=== PATIENT | female | born 1990 | race Asian ===

== ENCOUNTER 2024-11-07 10:41 | Emergency (ER) | payer BC, SELFPAY ==
[2024-11-07 10:49] VITALS: BP 116/76
[2024-11-07 11:07] VITALS: BMI 30.2
[2024-11-07 11:32] LABS: Hematocrit 37.7 % (37.0-47.0); Hemoglobin 12.6 g/dL (12.0-16.0); Mean Corp Hgb Conc. 33.4 g/dL (33.0-37.0); Mean Corpuscular Volume 80.4 fL (81.0-99.0); Nucleated Red Blood Cells % 0 %; Platelet Count 423 10^3/uL (130-400); Red Cell Dist. Width 14.4 % (11.5-14.5)
[2024-11-07 11:51] VITALS: BP 107/83
--- NOTE | 2024-11-07 11:58 | ED.GENMED ---
History of Present Illness
General
Chief Complaint: Problems
Source: patient
Exam Limitations: none
Time Seen by Provider: 11/07/24 11:17
Nursing documentation reviewed up to this point in time: agreed with
History of Present Illness
History of Present Illness:
Patient is a at approximately 6 weeks gestation who presents the emergency department with vaginal spotting. Patient states that her last menstrual period was 09/28/24. She had her first positive at-home test this past 11/04/24
along with 2 additional positive test over the following days. Patient states that yesterday evening she began noticing some ramping in her left pelvic region. This morning, she had brown spotting when she wiped only. She denies any bright red
bleeding or passage of clots.
Patient has yet to have an appointment with the [facility] however she is attempting to schedule with [facility]. She did contact their triage line this morning and was referred to the emergency department to rule out an ectopic
.
Patient denies any shortness of breath, lightheadedness/dizziness or syncopal events. She denies any fever or vomiting.
Review of Systems
Review of Systems
Allergies reviewed?: Yes
All Other Systems: ROS reviewed and negative except as documented in HPI and ROS
Phy Exam
Physical Exam
Physical Exam:
Vitals: Patient's vital signs are stable. Afebrile
General: Patient is well appearing, no acute distress
Skin: Warm and dry, no rashes or lesions
Head: Normocephalic, atraumatic
Eyes: Sclera nonicteric.
Throat: Protecting airway
Neck: Normal ROM, no cervical spine tenderness, no meningismus
Cardiac: Regular rate
Pulm: No respiratory distress
Abdomen: Abdomen soft with very mild tenderness in left pelvic region. No rebound tenderness or guarding.
Extremities: No evidence of cyanosis or edema
Neuro: AAOx3. Grossly intact.
Psychiatric: Normal affect.
Course
Orders/Labs/Results
Orders:
Orders
11/07/24 11:20
Beta HCG Quantitative Urgent
Is this a screen?: No
Complete Blood Count/With Diff Urgent
11/07/24 11:22
Type+Screen Urgent
11/07/24 11:56
US W Transvaginal Urgent
Reason For Exam: vaginal bleeding early
Abnormal Lab Results
11/07/24
11:20
WBC 11.7 H 10^3/uL
(4.8-10.8)
MCV 80.4 L fL
(81.0-99.0)
MCH 26.9 L pg
(27.0-31.0)
Plt Count 423 H 10^3/uL
(130-400)
Abs Immat Gran (auto) 0.1 H 10^3/uL
(0-0.05)
Absolute Neuts (auto) 8.1 H 10^3/uL
(1.4-6.5)
Immature Gran % 0.9 H %
(0-0.5)
11/07/24 11:20
Vital Signs
Initial and Last Documented VS:
Initial Vital Signs
Temp Pulse Resp BP Pulse Ox
98.4 F 90 16 116/76 98
11/07/24 10:49 11/07/24 10:49 11/07/24 10:49 11/07/24 10:49 11/07/24 10:49
Last Documented Vital Signs
Temp Pulse Resp BP Pulse Ox
98.4 F 74 16 108/85 98
11/07/24 10:49 11/07/24 12:57 11/07/24 12:57 11/07/24 12:57 11/07/24 12:01
Information
Weeks gestation: Weeks: (6 weeks, 2 days)
Location: Location: (Intrauterine)
MDM/Problems Addressed
Differential Diagnosis Includes:
Not limited to: Threatened , missed , subchronic hemorrhage, ectopic , etc.
MDM/Problems Addressed:
34-year-old female at approximately 6 weeks gestation presenting with mild left pelvic cramping as well as light vaginal spotting which started last night. Positive at-home test earlier this week however no ultrasound confirmation
thus far. No associated lightheadedness, shortness of breath, episodes of syncope. Sent to ED to rule out ectopic by [facility]. Patient hemodynamically stable on arrival. She is afebrile. On exam�patient well-appearing, no apparent
distress. Cardio/pulmonary assessment unremarkable. Abdomen soft with very very minimal tenderness in left pelvic region. No rebound tenderness or guarding.
Differential broad as above. ED plan: CBC, type and screen, hCG. Will obtain OB ultrasound and reassess.
Update: Labs reveal mild leukocytosis of 11.7. [place] [address]. Patient blood type O+. Ultrasound reveals single live IUP dating 6 weeks, 2 days with heart rate of 170 bpm. While this ultrasound finding is very reassuring�did
discuss with patient concern for threatened given vaginal bleeding in early . Advised pelvic rest and close OB follow-up for continued monitoring. Blood type O+�RhoGAM not indicated. Patient stable for discharge home.
Chronic conditions affecting care:
N/A
Acute Exacerbation and/or Progression of Chronic Illness:
N/A
*Radiology
Radiology exam reviewed: radiology read reviewed
*Pulse Oximetry
SaO2: 98
Oxygen Mode of Delivery: Room air
Patient hypoxic: no
*EKG
Interpreted by ED Provider?: NA
*Tower Observer Interpretation
Rate: Tower Observer- N/A
*Critical Care Note
Total Time (30-74mins, 75-104mins- exclusive of procedures): Not Applicable
ED Attending Note
-
Portions of this chart may have been created with voice recognition software.� Occasional wrong word or��sound alike� substitutions may have occurred due to the inherent limitations of voice recognition software.
Discharge Plan
Departure
Patient Disposition: Home (Routine Discharge)
Date of Disposition: 11/07/24
Time of Disposition: 13:47
Patient with high blood pressure during this ER visit?: No
Condition: Good
Discharge Problem:
Threatened miscarriage in early , Pelvic pain during
Instructions: Threatened Miscarriage (DC)
Prescriptions:
New
doxylamine-pyridoxine (vit B6) [Diclegis] 10-10 mg tablet,delayed release (DR/EC)
See Rx Instructions .ROUTE .COMPLEX Qty: 30 0RF
Rx Instructions:
2 tabs nightly, then add 1 tab in morning and 1 tab in afternoon if needed
Referrals:
Levar Javier MD [Active, Gynecology] - Next open appointment
Activity Restrictions/Additional Instructions:
RETURN TO THE EMERGENCY DEPARTMENT WITH ANY PERSISTENT/SEVERE PELVIC PAIN, WORSENING BLEEDING/PASSING LARGE CLOTS, LIGHTHEADEDNESS OR DIZZINESS, SHORTNESS OF BREATH, WORSENING CURRENT SYMPTOMS, OR ANY OTHER CONCERNS
- As discussed�your test was positive in the emergency department. Your ultrasound did show an intrauterine dating approximately 6 weeks, 2 days with heart rate of 170 bpm.
- I would adhere to pelvic rest until cleared by [facility].
- Please stay well-hydrated. A prescription for an antinausea has been sent to your pharmacy if symptoms persist/worsen despite diet modifications
- Follow-up with [facility] for further evaluation/management and to ensure that your symptoms improve
Monitor your symptoms closely and return to the emergency department with any acute worsening/new symptoms or any other concerns
Interventions
Interventions:
*Risk Screen - Suicide Last Done: 11/07/24 10:49
*General Assessment Last Done: 11/07/24 11:27
*Neglect/Abuse Screening Last Done: 11/07/24 10:49
*ED- Fall Risk Assessment Last Done: 11/07/24 11:09
*ED COVID-19 Vaccine History Last Done: 11/07/24 11:09
*Nursing Disposition Last Done: 11/07/24 14:19
ED-Female Genitourinary Assessment Last Done: 11/07/24 11:09
Discharge Date and Time
Discharge Date/Time: 11/07/24 14:20
Print Language: UKRAINIAN
[2024-11-07 12:28] LABS: Beta HCG Quantitative 16853.00 mIU/ml
[2024-11-07 12:57] VITALS: BP 108/85
== END 2024-11-07 14:20 | disposition home or self-care (01) ==
LOC: EMR 10:41
PROVIDERS: EMERGENCY PHYSICIAN Emergency Medicine; FAMILY PHYSICIAN Physician Assistant
DX: O20.0 Threatened abortion (principal); Z3A.01 Less than 8 weeks gestation of pregnancy
CPT/HCPCS: 99284; 76801; 76817; 84702; 85025; 86850; 86900; 86901

== ENCOUNTER → 2024-11-25 13:51 | Outpatient (REF) | payer BC, SELFPAY | LOC: RAD 13:51 | PROVIDERS: ATTENDING PHYSICIAN Obstetrics & Gynecology; FAMILY PHYSICIAN Physician Assistant | DX: O26.851 Spotting complicating pregnancy, first trimester (principal) | CPT/HCPCS: 76801 ==

== ENCOUNTER → 2024-12-11 17:48 | Outpatient (REF) | payer BC, SELFPAY | LOC: RAD 17:48 | PROVIDERS: ATTENDING PHYSICIAN Obstetrics & Gynecology; FAMILY PHYSICIAN Physician Assistant | DX: O26.859 Spotting complicating pregnancy, unspecified trimester (principal) | CPT/HCPCS: 76801 ==

== ENCOUNTER 2025-01-07 18:44 | Emergency (ER) | payer BC, SELFPAY ==
[2025-01-07 18:51] VITALS: BP 126/89
--- NOTE | 2025-01-07 19:33 | ED.GENMED ---
History of Present Illness
General
Chief Complaint: Abdominal Pain
Source: patient
Exam Limitations: none
Time Seen by Provider: 01/07/25 19:07
Nursing documentation reviewed up to this point in time: agreed with
History of Present Illness
History of Present Illness:
34-year-old female postop day 12 from elective D&E at [facility] due to abnormality, postoperatively she has had persistent pelvic pain into her back also into her legs, no fever no malodorous discharge, no heavy vaginal
bleeding no nausea or vomiting been using some Tylenol with relief has an appointment to see her treating gynecologic surgeon on Monday, she spoke with both her local OB and her gynecologic surgeon who recommend come to the ER for evaluation
Past History
Past History
ED Past Surgical History: Gynecological
Social History
Tobacco: Non-smoker
Alcohol: None
Drug: None
Personal:
Living: with family
Employment: Employed
Phy Exam
Physical Exam
Physical Exam:
Physical Exam
General: no apparent distress, not acutely ill
Neck: No jaundice
Heart: s1/s2 regular rate and rhythm, no murmur. equal radial pulses.
Lungs: no acute respiratory distress. clear bilaterally
Abdomen: Soft mild lower abdominal pelvic pain left and right
Neuro: alert and oriented. no focal neurological deficits
Skin: no rash
Psychiatric: well kept. interactive and cooperative
Extremities: no edema
Course
Orders/Labs/Results
Orders:
Orders
01/07/25 19:22
Ketorolac [Toradol] 30 mg IV NOW STA
US Pelvis Only (non-obstetric) Urgent
Comment:
Reason For Exam: retained products, d/e 14 weeks
01/07/25 19:24
0.9% Sodium Chloride 1000 ml [Nss] 1,000 ml IV BOLUS
01/07/25 19:47
Blood Group&Type Urgent
Beta HCG Quantitative Urgent
Is this a screen?: No
Complete Blood Count/With Diff Urgent
Comprehensive Metabolic Panel Urgent
01/07/25 19:52
Urinalysis Reflex To Culture Urgent
Specimen Description:
Date Specimen was Collected: 01/07/25
Time Specimen was Collected: 19:49
Urine Microscopic Reflex Cult Urgent
Urine Culture Urgent
CHARMAINE Source: U
Specimen Description:
Date Specimen was Collected: 01/07/25
Time Specimen was Collected: 19:49
01/07/25 22:33
CT Abd/pelvis W Iv Cont Urgent
Comment:
Reason For Exam: lower pelivc pain
HYDROmorphone [Dilaudid] 0.5 mg IV NOW STA
Abnormal Lab Results
01/07/25 01/07/25
19:47 19:52
MCH 26.5 L pg
(27.0-31.0)
MCHC 31.7 L g/dL
(33.0-37.0)
Plt Count 486 H 10^3/uL
(130-400)
Glucose 100 H mg/dl
(70-99)
Total Protein 8.5 H g/dl
(6.3-8.2)
Ur Occult Blood Reflex 2+ A
(Negative)
Urine Bacteria (Reflex) Many A
(Negative)
Urine Albumin (Reflex) 1+ A
(Neg - Trace)
01/07/25 19:47
01/07/25 19:47
Vital Signs
Initial and Last Documented VS:
Initial Vital Signs
Temp Pulse Resp BP Pulse Ox
97.8 F 94 16 126/89 98
01/07/25 18:51 01/07/25 18:51 01/07/25 18:51 01/07/25 18:51 01/07/25 18:51
Last Documented Vital Signs
Temp Pulse Resp BP Pulse Ox
97.8 F 94 16 126/89 98
01/07/25 18:51 01/07/25 18:51 01/07/25 18:51 01/07/25 18:51 01/07/25 19:34
MDM/Problems Addressed
Differential Diagnosis Includes:
Retained products, endometritis, doubt perforated uterus, low clinical sufficient for appendicitis conceivably musculoskeletal
MDM/Problems Addressed:
Pelvic pain after gynecologic surgery
*Radiology
Radiology exam reviewed: radiology read reviewed
*Pulse Oximetry
SaO2: 98
Oxygen Mode of Delivery: Room air
Patient hypoxic: no
*Critical Care Note
Total Time (30-74mins, 75-104mins- exclusive of procedures): Not Applicable
Update Note
Update Note:
1005, labs noted, urine noted many epi cells's ultrasound noted patient is nontoxic
Patient states pain came back states is in her right lower abdomen to her pelvis she also has pain shooting into her right leg
Will check CT scan treat symptomatically
ct report noted
ED Attending Note
-
Portions of this chart may have been created with voice recognition software.� Occasional wrong word or��sound alike� substitutions may have occurred due to the inherent limitations of voice recognition software.
Discharge Plan
Departure
Patient Disposition: Home (Routine Discharge)
Date of Disposition: 01/07/25
Time of Disposition: 23:55
Patient with high blood pressure during this ER visit?: No
Condition: Good
Discharge Problem:
Pelvic pain
Instructions: Abdominal pain in adults (DC)
Prescriptions:
New
ibuprofen 600 mg tablet
600 mg PO Q8H PRN (Reason: fever or pain) Qty: 20 0RF
oxycodone-acetaminophen [Percocet] 5-325 mg tablet
1 tab PO Q6HPRN PRN (Reason: pain) Qty: 14 0RF
No Action
doxylamine-pyridoxine (vit B6) [Diclegis] 10-10 mg tablet,delayed release (DR/EC)
See Rx Instructions .ROUTE .COMPLEX Qty: 30 0RF
Rx Instructions:
2 tabs nightly, then add 1 tab in morning and 1 tab in afternoon if needed
Referrals:
Angelica Wilkins PA-C [Family Provider, Family Practice]
Activity Restrictions/Additional Instructions:
Follow-up with your [facility] as scheduled
Interventions
Interventions:
*Risk Screen - Suicide Last Done: 01/07/25 18:51
*Neglect/Abuse Screening Last Done: 01/07/25 18:51
*ED- Fall Risk Assessment Last Done: 01/07/25 19:16
*ED COVID-19 Vaccine History Last Done: 01/07/25 18:51
*ED Influenza Vaccine History Last Done: 01/07/25 18:51
RP-Vbtjeo-Kpkhjmfkmb Assessment Last Done: 01/07/25 20:48
Discharge Date and Time
Print Language: SINHALA
[2025-01-07 19:39] VITALS: BMI 29.9
[2025-01-07] MEDS: TORADOL 30 MG IV (19:41)
[2025-01-07] MEDS: NSS 1000 IV (19:41)
[2025-01-07 19:57] LABS: Hematocrit 42.6 % (37.0-47.0); Hemoglobin 13.5 g/dL (12.0-16.0); Mean Corp Hgb Conc. 31.7 g/dL (33.0-37.0); Mean Corpuscular Volume 83.5 fL (81.0-99.0); Nucleated Red Blood Cells % 0 %; Platelet Count 486 10^3/uL (130-400); Red Cell Dist. Width 14.1 % (11.5-14.5)
[2025-01-07 20:02] LABS: Urine Character Clear (Clear)
[2025-01-07 20:08] LABS: Urine Squamous Cell >30 /LPF (Few)
[2025-01-07 20:11] LABS: Urine Red Blood Cell 0-2 /HPF (0-2)
[2025-01-07 20:14] LABS: ALT (SGPT) 24 U/L (0-35); AST (SGOT) 23 U/L (14-36); Albumin 5.0 g/dl (3.5-5.0); Alkaline Phosphatase 68 U/L (38-126); Blood Urea Nitrogen 11 mg/dl (7-17); Calcium 10.1 mg/dl (8.4-10.2); Carbon Dioxide 26 mmol/L (22-30); Chloride 105 mmol/L (98-107); Estimated Creatinine Clearance > 125 ml/min; Glucose 100 mg/dl (70-99); Potassium 4.6 mmol/L (3.5-5.1); Sodium 140 mmol/L (135-145); Total Protein 8.5 g/dl (6.3-8.2); eGFR > 60.00
[2025-01-07 20:28] LABS: Beta HCG Quantitative 36.29 mIU/ml
[2025-01-07] MEDS: DILAUDID 0.5 MG IV (23:29)
[2025-01-08 02:13] LABS: Folate 12.9 ng/ml (2.76-20)
== END 2025-01-08 00:35 | disposition home or self-care (01) ==
LOC: EMR 18:44
PROVIDERS: EMERGENCY PHYSICIAN Emergency Medicine; FAMILY PHYSICIAN Physician Assistant
DX: R10.23 Pelvic and perineal pain bilateral (principal)
CPT/HCPCS: 99284; 96374; 96375; 96361; 74177; 76856; 80053; 81003; 81015; 82746; 84702; 85025; 86900; 86901; 87086; Q9967